=== PATIENT | female | born 1960 | race Caucasian/White ===

== ENCOUNTER 2019-04-18 19:00 | Outpatient (CLI) | payer MEDICAID | END 2019-04-18 23:59 | disposition home or self-care (01) | LOC: D.MAMMO 19:00 | PROVIDERS: ATTEND Nurse Practitioner Family | DX: N63.12 Unspecified lump in the right breast, upper inner quadrant (principal) ==

== ENCOUNTER → 2019-05-10 08:10 | Outpatient (CLI) | payer MEDICAID | END | disposition home or self-care (01) | LOC: D.US 05-03 09:00 | PROVIDERS: ATTEND Nurse Practitioner Family | DX: N63.12 Unspecified lump in the right breast, upper inner quadrant (principal) ==

== ENCOUNTER 2019-06-08 07:52 | Day surgery (SDC) | payer MEDICAID ==
[~2019-06-08] VITALS: Ht 162.6 cm; Wt 83.0 kg
--- NOTE | ~2019-06-08 | OP ---
PATIENT NAME: CARLO ARMSTRONG MEDICAL RECORD: [id number] :60 LOCATION:D.OPS ADMISSION DATE: SURGEON: MALISSA PINEDO MD DATE OF OPERATION: 06/08/2019 PREOPERATIVE DIAGNOSES: 1. Right breast cancer. 2. Hypertension. POSTOPERATIVE DIAGNOSES: 1. Right breast cancer. 2. Hypertension. PROCEDURE: Right lumpectomy with right axillary sentinel lymph node biopsy. SURGEON: Malissa Pinedo MD REPORT OF PROCEDURE: The patient underwent lymphoscintigraphy preoperatively. A skin incision was made in the right inferior axilla and electrocautery was used to dissect through the subcutaneous space until we encountered the axillary space. Once inside, we were able to find a lymph node. We had a reading of 80. This lymph node was excised from the surrounding tissues. It was sent off for permanent specimen. We then inspected the remainder of the axilla and we could not find any high readings present. At this point, a semicircular incision was made on the superior aspect of the nipple areolar complex. Using ultrasound, we could see that the mass was present in the 12 o'clock position just a couple of centimeters from the nipple areolar complex. A dissection was performed of the surrounding breast tissue, incorporating the palpable mass all the way down to just near the patient's pectoral fascia. Once this mass and the tissue was removed, it was marked appropriately and sent off for permanent specimen. We irrigated out the wound with sterile water. Any bleeding from the wound was then treated with electrocautery. The subcutaneous tissues were all reapproximated with interrupted 3-0 Vicryl and the skin incisions were closed with running subcutaneous 5-0 Monocryl. COMPLICATIONS: None. CONDITION: Stable. ANESTHESIA: General endotracheal and local. BLOOD LOSS: 30 mL. TRANSINT:[id number] Voice Confirmation ID: [id number] DOCUMENT ID: [id number] MALISSA PINEDO MD CC: NEVIN POOLE [id number] DICTATION DATE: 06/08/19 1357 REMODELER: 06/08/19 1436 [facility] [address] [id number]
[~2019-06-08 07:52] MED LIST: LISINOPRIL5 MG PO; XALATAN 0.0052.5 ML EACH EYE
[2019-06-08 08:31] LABS: BASOPHILS 0.1 % (0-2); EOSINOPHILS 5.1 % (0-7); HEMATOCRIT 42.2 % (36.0-48.0); HEMOGLOBIN 14.8 g/dL (12-16); IMMATURE GRANULOCYTES 0.3 % (0-5); LYMPHOCYTES 32.5 % (15-50); MCH 30.9 pg (26.0-34.0); MCHC 35.1 g/dL (31.0-37.0); MCV 88.1 fL (80.0-100.0); MEAN PLATELET VOLUME 10.7 fL (7.4-10.4); MONOCYTES 10.3 % (2-11); NEUTROPHILS 51.7 % (40-80); PLATELET COUNT 184 10x3/uL (130-400); RBC 4.79 10x6/uL (4.00-5.40); RDW 12.3 % (11.5-14.5); WBC 6.7 10x3/uL (4.8-10.8)
[2019-06-08 08:36] LABS: CALC OSMOLALITY 283 mosm/kg (275-300); CARBON DIOXIDE 26.5 mmol/L (21.0-32.0); CHLORIDE - SERUM 106 mmol/L (98-107); CREATININE - SERUM 0.7 mg/dL (0.6-1.3); GLUCOSE 126 mg/dL (74-106); POTASSIUM - SERUM 4.2 mmol/L (3.5-5.1); SODIUM 142 mmol/L (136-145); UREA NITROGEN 9 mg/dL (7-18); eGFR NON AFRICAN AMERICAN > 90 mL/min (90-120)
--- NOTE | 2019-06-08 09:38 | NUR ---
Lymphscintigraphy of the Right Breast. Time-out was done at 0840 on 06/08/19. 504uCi Tc-99m Tilmanocept was injected in the Right Breast subcutaneously by Dr. Key at 0850.
[2019-06-08 10:16] LABS: APTT 29.3 SECONDS (22.8-39.4); INR 0.98 (0.85-1.17); PROTIME 12.5 SECONDS (11.6-15.0)
[2019-06-08 11:44] VITALS: BP 113/76; Ht 162.6 cm; Wt 83.0 kg
[2019-06-08] MEDS ORDERED: HYDROCODON-ACE1 EA10 PO (13:54)
--- NOTE | 2019-06-08 15:25 | NUR ---
1445- REC'D FROM RR,VSS. IV PATENT TO RIGHT HAND AT [facility].
--- NOTE | 2019-06-08 15:26 | NUR ---
1515-FULL LIQUID TRAY TO ROOM.VSS.
--- NOTE | 2019-06-08 16:45 | NUR ---
1620-IV DISCONTINUED FROM LEFT ARM WITH CATH INTACT. COVERED WITH BANDAID. TOLERATED WELL WITOUT COMPLAINTS.DISPOSED INTO SHARPS RATES PAIN 12/24.
--- NOTE | 2019-06-08 16:50 | NUR ---
1614-DISCHARGED VIA W/C WITH DAUGHTER. REVIEWED DISCHARGE INSTRUCTIONS WITHOUT QUESTIONS OR CONCERNS. PAPERS IN HAND
== END 2019-06-08 16:40 | disposition home or self-care (01) ==
LOC: D.OPS 07:52
PROVIDERS: Anesthesiology; ATTEND Surgery
DX: C50.811 Malignant neoplasm of overlapping sites of right female breast (principal); D05.11 Intraductal carcinoma in situ of right breast; I10 Essential (primary) hypertension; Z01.812 Encounter for preprocedural laboratory examination

== ENCOUNTER 2020-04-01 19:00 | Outpatient (CLI) | payer MEDICAID ==
[2019-06-08 11:44] VITALS: BMI 31.5
[~2020-04-01 19:00] MED LIST changes: +HYDROCODON-ACE1 EA10 PO
== END 2020-04-01 23:59 | disposition home or self-care (01) ==
LOC: D.MAMMO 19:00
PROVIDERS: ATTEND Surgery
DX: N63.15 Unspecified lump in the right breast, overlapping quadrants (principal); Z85.3 Personal history of malignant neoplasm of breast

== ENCOUNTER 2020-08-04 08:00 | Outpatient (CLI) | payer MEDICAID ==
[2019-06-08 11:44] VITALS: BMI 31.5
== END 2020-08-04 14:38 | disposition home or self-care (01) ==
LOC: D.MAMMO 08:00
PROVIDERS: ATTEND Surgery
DX: Z85.3 Personal history of malignant neoplasm of breast (principal); N63.0 Unspecified lump in unspecified breast